=== PATIENT | female | born 1960 | race Caucasian/White ===

== ENCOUNTER → 2022-06-11 | Outpatient (CLI) | payer MEDICARE ==
[~2022-06-11] MED LIST: ECOTRIN81 MG PO; GLUCOPHAGE1000 MG PO; LOPRESSOR50 MG PO; LOTENSIN TAB 1010 MG PO; NORCO 5-325 TA1 EACH PO; PERCOCET 5/325 T1 EA PO
== END ==
LOC: MAMO 13:31
DX: Z12.31 Encounter for screening mammogram for malignant neoplasm of breast (principal); R07.81 Pleurodynia
CPT/HCPCS: 71101; 77063; 77067